=== PATIENT | male | born 1970 | race Two or more races ===

== ENCOUNTER 2017-10-13 09:51 | Day surgery (SDC) | payer OTHER ==
[2017-10-13] MEDS ORDERED: ANESTHESIA TRAY IN PYXIS 1 EA TRAY MC ONE (12:59)
[2017-10-13] MEDS ORDERED: KETOROLAC TROMETHAMINE INJ 30 MG/ML VIAL ONE (13:48)
== END 2017-10-13 14:50 | disposition home or self-care (01) ==
LOC: DS 09:51
PROVIDERS: ATTEND Specialist
DX: G56.01 Carpal tunnel syndrome, right upper limb (principal); M65.841 Other synovitis and tenosynovitis, right hand
CPT/HCPCS: A6402; J0690; J1885; J2704; Z7610

== ENCOUNTER 2018-04-27 05:15 | Day surgery (SDC) | payer OTHER ==
[2018-04-27] MEDS ORDERED: ANESTHESIA TRAY IN PYXIS 1 EA TRAY MC ONE (06:31)
[2018-04-27] MEDS ORDERED: LIDOCAINE HCL/PF 1% 30 ML SDV ONE (06:31)
[2018-04-27] MEDS ORDERED: HYDROCODONE/APAP 5/325MG 1 EACH TABLET ONE (07:51)
[2018-04-28] MEDS ORDERED: HYDROCODONE/APAP 5/325MG 1 EACH TABLET ONE (10:32)
== END 2018-04-27 08:35 | disposition home or self-care (01) ==
LOC: DS 05:15
PROVIDERS: ATTEND Specialist
DX: G56.02 Carpal tunnel syndrome, left upper limb (principal); M65.842 Other synovitis and tenosynovitis, left hand; I10 Essential (primary) hypertension; I25.2 Old myocardial infarction; Z79.899 Other long term (current) drug therapy; Z98.890 Other specified postprocedural states
CPT/HCPCS: 64721; J3490; A6402; J0690; J1100; J2405; J2704